=== PATIENT | male | born 1985 | race Caucasian/White ===

== ENCOUNTER 2025-02-16 07:40 | Emergency (ER) | payer SELFPAY ==
[~2025-02-16] VITALS: Ht 195.6 cm; Wt 102.0 kg
[2025-02-16 07:43] VITALS: O2SAT 99
[2025-02-16] MEDS: KETOROLAC 30MG/ML VIAL IM ONE (08:17)
[2025-02-16 08:45] LABS: PLATELET 177 x1000/uL (130-400); RED BLOOD CELL COUNT 5.04 mill/uL (4.7-6.1); RED CELL DISTRIBUTION WIDTH 14.1 % (11.6-14.6)
[2025-02-16 08:59] LABS: CREATININE 1.0 mg/dL (0.6-1.3)
[2025-02-16 09:00] LABS: UREA NITROGEN BLOOD 11 mg/dL (9-23)
[2025-02-16 09:21] VITALS: BP 118/70; PULSE 85; RESP 18; TEMP 36.8; O2SAT 99
== END 2025-02-16 09:22 | disposition home or self-care (01) ==
LOC: ER 07:40
DX: M54.6 Pain in thoracic spine (principal); R53.83 Other fatigue; J45.909 Unspecified asthma, uncomplicated
CPT/HCPCS: 99283; 80048; 85027; 36415; 96372; J1885